=== PATIENT | male | born 1945 | race Caucasian/White ===

== ENCOUNTER 2018-08-15 05:37 | Inpatient (IN) | payer MEDICARE ==
--- NOTE | 2018-08-12 10:10 | HP ---
Amended report to enter cosigning physician. HISTORY AND PHYSICAL: DATE OF ADMISSION/SURGERY: 08/15/18 DATE OF OFFICE VISIT: 08/09/18 SURGEON: Telma Rascon MD* (dictated by ROSENDO Avery). PROCEDURE: Right total knee arthroplasty. CHIEF COMPLAINT: Right knee pain. HISTORY OF PRESENT ILLNESS: Mr. Mai is a 73-year-old gentleman with end- stage osteoarthritis of the right knee. He has failed conservative treatment and elected to proceed with a right total knee arthroplasty. PAST MEDICAL HISTORY: High cholesterol and hypertension. PAST SURGICAL HISTORY: Right knee arthroscopy, appendectomy and right rotator cuff repair. CURRENT MEDICATIONS: 1. Amlodipine 10 mg a day. 2. Losartan 100 mg a day. 3. Simvastatin 20 mg a day. ALLERGIES: No known drug allergies. FAMILY HISTORY: Diabetes, coronary artery disease and cancer. SOCIAL HISTORY: A 73-year-old gentleman, lives with his . He does not smoke or use drugs. REVIEW OF SYSTEMS: A complete 14-point review of systems was reviewed with the patient. It was all negative and noncontributory. PHYSICAL EXAMINATION GENERAL: He is well developed, well nourished, in no acute distress. VITAL SIGNS: He stands 68 inches tall, weighs 182 pounds. Blood pressure is 116/72, heart rate 68. HEENT: Normocephalic, atraumatic. NECK: Supple. No palpable lymph nodes. PULMONARY: The lungs are clear to auscultation bilaterally. CARDIO: Regular rate and rhythm. Strong S1, S2. ABDOMEN: Soft, nontender, and nondistended. NEUROLOGICAL: He is alert and oriented x3. MUSCULOSKELETAL: Right lower extremity, the skin is intact. There are no open wounds or abrasions. There is a moderate effusion of the right knee joint. Range of motion is 15 to 120 degrees of flexion. There is a varus alignment. He has 2+ dorsalis pedis pulse. He is able to dorsiflex and plantarflex and has intact sensation. ASSESSMENT AND PLAN: Mr. Mai is a 73-year-old gentleman with end-stage osteoarthritis of the right knee. He has failed conservative treatment and elected to proceed with a right total knee arthroplasty. The surgery is scheduled for 08/15/[address] Rascon discussed the risks and benefits of the surgery at today's visit and all of his questions were answered. He will follow up with Dr. Rascon 2 weeks after the surgery. ROSENDO AVERY [id number]/CPS #: [id number] [facility]OSPITALNick
[~2018-08-15 05:37] MED LIST: Buffered Lidocaine 1% SYRIN* 1 ML/SYRINGE INTRADERM ONE; Tranexamic Acid 1,000 MG in NS 0.9% 50 ML* (outpatient use) IV SCH
--- OUTSIDE RECORDS SUMMARY | 2018-08-15 05:39 | XMS REPORT | Continuity of Care Document ---
:1945 External Reference #:[id number] Author Name Annemarie Lovell Care Team Providers Name Role Phone Colby Moreno MD Primary Care Physician Unavailable Payers Date Identification Numbers Payment Provider Subscriber Policy Number: [id number] [employer] Medicare Rangel Mai PayID: [id number] [address] [place] [address] Expires: 2013 Policy Number: [id number] [employer] Rangel Mai Group Number: [id number] [address] PayID: [id number] [place] [address] Expires: 2018 Policy Number: [id number] [employer] Rangel Mai Group Number: [id number] [address] PayID: [id number] [place] [address] Advance Directives Description No Information Available Problems Description No Information Family History Date Family Member(s) Observation Comments General Heart Disease General Breast Cancer General Benign Prostatic Hypertrophy General Diabetes Social History Type Date Description Comments Sex Unknown Lives With Occupation Retired ETOH Use Occasionally consumes alcohol Recreational Drug Use Denies Drug Use Tobacco Use Start: Unknown Patient has never smoked Smoking Status Reviewed: 08/09/18 Patient has never smoked Exercise Type/Frequency Exercises regularly Allergies, Adverse Reactions, Alerts Description No Known Drug Allergies Medications Active Medications SIG Qnty Indications Ordering Provider Date Simvastatin 1 by mouth every 90tabs Unknown 20mg day Tablets Amlodipine Besylate Take 1 Tablet By Unknown Mouth Every Day 10mg Tablets Losartan Potassium Take 1 Tablet By Unknown Mouth Every Day 100mg Tablets History Medications Voltaren apply 2g to 100g M76.62 Marcos Peraza, 12/18/2014 - 1% Gel affected area M.D. 06/16/2018 four times a day Ambien CR take one tablet 15tabs Josiah Lr, 09/05/2012 - 6.25mg at bedtime prn M.D. 06/16/2018 Tablets ER sleep Percocet take 1-2 tabs po 60tabs Josiah Lr, 07/19/2012 - 5-325mg q4-6 hours prn M.D. 03/06/2014 Tablets pain Ibuprofen 1 by mouth three 90tabs Unknown - 600mg times a day as 06/16/2018 Tablets needed Lisinopril 1 by mouth every 90tabs Unknown - 10mg day 06/16/2018 Tablets Medications Administered in Office Medication SIG Qnty Indications Ordering Provider Date Depomedrol 40MG Frederick Ashley M.D. 02/01/2011 Injection Immunizations Description No Information Available Vital Signs Date Vital Result Comment 08/09/2018 9:37am Height 68 inches 5'8" Weight 183.00 lb Heart Rate 68 /min BP Systolic 116 mmHg BP Diastolic 72 mmHg Respiratory Rate 16 /min Body Temperature 97.2 F Pain Level 97.2 BMI (Body Mass Index) 27.8 kg/m2 06/17/2018 9:45am Height 68 inches 5'8" Weight 188.00 lb Heart Rate 84 /min BP Systolic 124 mmHg BP Diastolic 72 mmHg BMI (Body Mass Index) 28.6 kg/m2 03/05/2015 10:38am Height 68 inches 5'8" Weight 190.00 lb Pain Level 2 BMI (Body Mass Index) 28.9 kg/m2 01/29/2015 10:07am Height 68 inches 5'8" Weight 190.00 lb Pain Level 2 2-4 BMI (Body Mass Index) 28.9 kg/m2 12/18/2014 10:49am Height 68 inches 5'8" Weight 190.00 lb Pain Level 2 BMI (Body Mass Index) 28.9 kg/m2 03/06/2014 9:57am Height 68 inches 5'8" Weight 188.00 lb Heart Rate 76 /min BP Systolic Sitting 140 mmHg BP Diastolic Sitting 0 mmHg Pain Level 2 back BMI (Body Mass Index) 28.6 kg/m2 Results Test Date Facility Test Result H/L Range Note Surgical Pathology 08/07/2012 [facility] S RUN DATE: irisnote <SEE NOTE> [place] [address] [phone] 1 RUN DATE: 08/08/12 [facility] LAB LIVE PAGE 1 RUN TIME: [address] [facility], [place], [place] [address] Specimen Inquiry Name: RANGEL MAI : [address]: Josiah Lr MD Acct: [id number] Unit: [id number] AGE: 67 Location: [place] Re08/07/12 SEX: M [place] [facility] [place]C: [id number] BRANDIN: 08/07/12- [facility] DR: Josiah Lr MD REQ: [id number] RECD: 08/07/12 STATUS: SOUT _ ORDERED: LEVEL III FINAL DIAGNOSIS Shoulder, right, shavings: Fragments of hyperplastic synovium, articular cartilage with degenerative features, and bone fragments. PRE-OPERATIVE DIAGNOSIS Right shoulder cuff tear GROSS DESCRIPTION The specimen is received in formalin labeled Rangel Mai, Shavings Right Shoulder, and consists of a 0.7 x 0.3 x 0.2 cm. aggregate of yellow and white tissue fragments. Rug Clipper sections, one cassette. Signed (signature on file) Thom Gonsales MD 1529 END OF REPORT * ML=Testing performed at Main Lab DEPARTMENT OF PATHOLOGY, [address] [place] [address] Thom Gonsales M.D. Director [facility] Permit #[id number] Procedures Date Code Description Status 08/07/2012 16341 Arthroscopy Shoulder,W/Rotator Cuff Repair Completed 08/07/2012 94836 Arthroscopy Shoulder,W/Rotator Cuff Repair Completed 08/07/2012 55297 Arthroscopy,Shoulder Decompression Of Subacromial Space Completed W/Acromio 08/07/2012 25501 Arthroscopy,Shoulder Decompression Of Subacromial Space Completed W/Acromio 05/31/2012 89072 Rad Shoulder Comp, Min. 2 Views Completed 02/01/2011 66018 Rad Exam; Fingers Completed 02/01/2011 87944 Inject Tendon Sheath Or Ligament Aponeurosis Eg Plantar Completed Fascia Encounters Type Date Location Provider Dx Diagnosis Office Visit 06/17/2018 Orthopedic Telma Rascon, M25.561 Pain in right 9:00a [facility] knee M25.461 Effusion, right knee M17.11 Unilateral primary osteoarthritis, right knee M21.161 Varus deformity, not elsewhere classified, right knee Office Visit 03/05/2015 10:30a Orthopedic Marcos Montenegro76.62 [facility] M.D. tendinitis, left leg Office Visit 01/29/2015 10:00a Leah Montenegro76.62 [facility] M.D. tendinitis, left leg Office Visit 12/18/2014 10:20a Orthopedic Marcos 726.71 Bursitis Or [facility] Per[facility] M.D. Tendinitis Achilles Office Visit 03/06/2014 9:40a Neurosurgery Mike Bell 721.3 Spondylosis [facility] Kody Guerrero M.D. 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 (Capsule) Office Visit 12/03/2012 10:15a Orthopedic Josiah Lr 840.4 Sprains & Strains Services Of M.D. Rotator Cuff [facility]. (Capsule) Office Visit 05/31/2012 2:15p Orthopedic Frederick Ashley 840.4 Sprains & Strains Services Of M.D. Rotator Cuff [facility] (Capsule) Office Visit 02/15/2011 2:45p Orthopedic Frederick Ashley 722.10 Intervertebral Disc [facility] M.D. Displacement Lumbar [facility]. W/O Myelopathy Office Visit 02/01/2011 8:00a Orthopedic Frederick Ashley 727.05 Tenosynovitis Hand & Services Of M.D. Wrist Other C.M.A. 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 at [facility]08/15/2018 7:45 am - Venkata Long PA-C at [facility]08/15/2018 7:45 am - ROSENDO Luna at [facility]08/15/2018 7:45 am - Telma Rascon M.D. at [facility]08/09/2018 - Telma Rascon M.D.M25.561 Pain in right kneeFollow up:Follow up: 2 weeks after xfwrhvhB25.461 Effusion, right kneeNew Therapy:Physical JtioqkvM31.11 Unilateral primary osteoarthritis, right kneeM21.161 Varus deformity, not elsewhere classified, right knee
[2018-08-15] MEDS ORDERED: celeCOXIB CAP* 100 MG ONE (05:59)
[2018-08-15] MEDS ORDERED: Acetaminophen TAB* 325 MG ONE (05:59)
[2018-08-15] MEDS ORDERED: Gabapentin CAP(*) 300 MG ONE (05:59)
[2018-08-15] MEDS ORDERED: Famotidine IV* 10 MG/ML 2 ML (20 mg) ONE (06:00)
[2018-08-15] MEDS ORDERED: Lactated Ringers 1000 ML Bag* 1,000 ML IV SCH (06:00)
[2018-08-15] MEDS ORDERED: celeCOXIB CAP* 200 MG PO ONE (06:00)
[2018-08-15] MEDS ORDERED: Gabapentin CAP(*) 300 MG PO ONE (06:00)
[2018-08-15] MEDS ORDERED: Acetaminophen TAB* 325 MG PO ONE (06:00)
[2018-08-15] MEDS ORDERED: Famotidine IV* 10 MG/ML 2 ML (20 mg) IV ONE (06:00)
[2018-08-15] MEDS ORDERED: ceFAZolin 2 GM in NS PREMIX(*) 2 GM/100 ML BAG IVPB ONE (06:00)
[2018-08-15] MEDS ORDERED: Buffered Lidocaine 1% SYRIN* 1 ML/SYRINGE INTRADERM ONE (06:33)
[2018-08-15] MEDS ORDERED: Lidocaine 2% PF * 5 ML VIAL ONE (06:59)
[2018-08-15] MEDS ORDERED: Propofol* 10 MG/ML 20 ML BTL ONE ×2 (06:59→08:08)
[2018-08-15] MEDS ORDERED: ROPIVACAINE 5 MG/ML 30 ML BTL (0.5%) ONE ×2 (06:59→07:02)
[2018-08-15] MEDS ORDERED: fentaNYL* 50 MCG/ML 2 ML VIAL (100 MCG VIAL) ONE (06:59)
[2018-08-15] MEDS ORDERED: Sodium Chloride 0.9%* 20 ML ONE (06:59)
[2018-08-15] MEDS ORDERED: Dexamethasone IV* 4 MG/ML 1 ML (4 MG) ONE (06:59)
[2018-08-15] MEDS ORDERED: Ondansetron INJ* 2 MG/ML VIAL ONE (06:59)
[2018-08-15] MEDS ORDERED: Midazolam* 1 MG/ML 10 ML VIAL (10 MG) ONE (07:00)
[2018-08-15] MEDS ORDERED: KETAMINE HCL* 50 MG/ML 10 ML VIAL ONE (07:00)
[2018-08-15] MEDS ORDERED: Bupivacaine 0.5% SDV PF* 30ML VIAL ONE (07:57)
[2018-08-15] MEDS ORDERED: Phenylephrine 10 MG/ML VIAL* 1 ML VIAL ONE (08:26)
[2018-08-15] MEDS ORDERED: Naloxone* 0.4 MG/ML 1 ML VIAL IV PRN (09:51)
[2018-08-15] MEDS ORDERED: Ondansetron INJ* 2 MG/ML VIAL IV PRN ×2 (09:51→10:23)
[2018-08-15] MEDS ORDERED: fentaNYL* 50 MCG/ML 2 ML VIAL (100 MCG VIAL) IV PRN (09:51)
[2018-08-15] MEDS ORDERED: diPHENhydraMINE IV* 50 MG/ML 1 ml VIAL (BENADRYL) IV PRN (10:23)
[2018-08-15] MEDS ORDERED: Morphine INJ* 2 MG/ML 1 ML SYRINGE (TWO MG - NEW SYRINGE VERSION) IV PRN (10:23)
[2018-08-15] MEDS ORDERED: Magnesium Hydroxide LIQ* 30 ML UDC PO PRN (10:23)
[2018-08-15] MEDS ORDERED: Bisacodyl SUPP* 10 MG SUPP PR PRN (10:23)
[2018-08-15] MEDS ORDERED: Ondansetron TAB* 4 MG PO PRN (10:23)
[2018-08-15] MEDS ORDERED: Polyethylene Glycol 3350* 17 GM PACKET PO PRN (10:23)
[2018-08-15] MEDS ORDERED: oxyCODONE/Acetamin 5/325 MG* TAB PO PRN (10:23)
[2018-08-15] MEDS: Lactated Ringers 1000 ML Bag* 1,000 ML IV SCH ×2 (12:10→22:50)
[2018-08-15] MEDS: oxyCODONE/Acetamin 5/325 MG* TAB PO PRN ×3 (13:05→22:44)
--- NOTE | 2018-08-15 14:32 | PN ---
Progress Note - Progress Note Date of Service: 08/15/18 Note: patient resting in room, pain 4/10; able to dorsi flex/plantar flex, 2+DP pulse and intact sensation, dressing c/d/i
[2018-08-15] MEDS: Acetaminophen TAB* 325 MG PO SCH ×2 (14:40→23:50)
[2018-08-15] MEDS: Cyclobenzaprine TAB* 10 MG PO PRN ×2 (14:45→22:42)
[2018-08-15] MEDS: ceFAZolin 1 GM ADVAN(*) 1 GM in NS 0.9% 50 ML* 50 ML IVPB SCH ×2 (16:43→23:52)
--- NOTE | 2018-08-15 17:56 | OP ---
Operative Report - Blank - Operative Report Date of Operation: 08/15/18 Note: YANG OSCAR 1945 Date of Surgery: 08/15/18 Telma Rascon MD Laser Cutter: Debra ROBBINS did help throughout the procedure with preparation of the knee, wound retraction, manipulation of the knee, and wound closure. Anesthesiologist: Yessi Prater MD Anesthesia Type: Spinal Preoperative Diagnosis: Right severe degenerative osteoarthritis of the knee Postoperative Diagnosis: As above Procedure Performed: Right Total Knee Arthroplasty Tourniquet time: 49 minutes Complications: None Specimen: Bone and cartilage from the right knee joint sent to pathology. Hardware Used: Cemented Gay and Nephew total knee hardware was used - For the femur a size 7 right legion posterior stabilized femoral component, for the tibia a size 6 right tere II tibial baseplate, for the insert a size 9mm 5-6 posterior stabilized articular polyethylene insert, and for the patella a size 35 3-peg all poly patella. Brief History/Indication: YANG OSCAR was known in clinic and had a history of severe right knee pain and swelling. He failed conservative treatment with anti-inflammatories, pain pills, intra-articular injections and physical therapy. He elected to undergo right total knee arthroplasty due to continued pain and decreased quality of life. Radiographs showed severe end stage osteoarthritis of the knee with bone on bone contact. Informed consent was obtained from the patient. He understood the risks of surgery included but were not limited to: bleeding, infection, damage to nearby structures, intraoperative fracture, nerve palsy, failure of the hardware, early loosening, knee stiffness or loss of motion, anesthesia complications, stroke, heart attack , blood clot and . He wished to proceed. Intra-Operative Findings: Intraoperatively the patient was noted to have severe loss of cartilage in all 3 compartments of the knee. His medial femoral condyle had a large loose osteochondral defect encompassing almost the entire weightbearing surface. Description of the Procedure: YANG OSCAR was identified in the preanesthesia unit. His right knee was marked as the correct operative side. Informed consent was signed and placed in the chart. The patient was taken to the operating room and placed under anesthesia without complication. A ramirez catheter was placed. A tourniquet was placed on the right thigh. The right lower extremity was prepped and draped in the usual sterile fashion. Preoperative time-out was made to correctly identify the patient, side and site. Appropriate intraoperative antibiotics were given within one hour of incision. Tourniquet was inflated. A midline incision was made and carried sharply down to the extensor mechanism. A new 10 blade was used to make a standard medial parapatellar arthrotomy. The patella was subluxed laterally. Electrocautery was used to dissect soft tissue off the superomedial tibia to the midsagittal plane. The knee was flexed up. The anterior horn of the lateral meniscus and the ACL were sharply incised. A drill was used to enter the distal femur. The intramedullary distal femoral cutting guide was pinned on the distal femur. The oscillating saw was used to make the distal femoral cut. The external rotation guide was pinned on the distal femur and the distal femur was sized to a size 7. The size 7 multi-cutting jig was pinned on the distal femur. The oscillating saw was used to make the appropriate 4 chamfer cuts. Next the PCL was completely released. The extramedullary tibial cutting guide was pinned on the proximal tibia and the oscillating saw was used to make the proximal tibial cut perpendicular to the mechanical axis of the tibia. The bone was carefully removed. The knee was brought out into full extension. The spacer block was placed and had excellent fit with the knee in full extension. The medial and lateral ligaments were well balanced. The flexion and extension gaps were well balanced. The knee was flexed up. Lamina pilot plant technician was placed both medially and laterally. Any remaining meniscus was removed with electrocautery. Curved osteotome was used to remove any posterior osteophytes. The tibial tray and drop maria guadalupe were placed and confirmed a satisfactory tibial cut. The size 7 right femoral trial was impacted onto the distal femur. This trial had excellent fit and stability. The box for the posterior stabilized implant was prepared using a box cut osteotome and a reamer. Next a tibial tray trial and 9 mm insert trial was placed. The knee was taken through a range of motion and had full extension to 130 degrees of flexion. Patellofemoral tracking was satisfactory. The patella was inverted and sized to a size 35. Three peg holes were drilled through the size 35 drill guide. The trial patella was placed and the knee was taken through a range of motion. There was satisfactory patellofemoral tracking. All trials were removed. The tibia was subluxed anteriorly and sized to a size 6. The proximal tibial was prepared with a size 6 keel punch. All bony cut surfaces were irrigated with sterile saline and dried. Final implants were cemented into place starting with the tibia, followed by the femur, and last the patella. A 9 mm insert trial was placed and the knee was brought into full extension. Tourniquet was turned down and the knee was copiously irrigated with sterile saline. Electrocautery was used to obtain meticulous hemostasis. Once the cement had fully cured, the insert trial was removed. Any excess cement was removed from around the hardware and capsule. Final insert chosen was a 9 mm posterior stabilized Tere II articular insert size 5-6. Stability of the insert was checked and noted to be stable. The extensor mechanism was closed using number 1 vicryls. The rest of the incision was closed in a layered fashion using 0 and 2-0 vicryls. The skin was closed using 3-0 nylon suture. Sterile xeroform, 4x4s and webril were used to cover the incision. Tray wrap and cold pack were used to cover the dressings. The patients anesthesia was reversed without difficulty. He was taken to the PACU in stable condition. Intended weight-bearing will be as tolerated.
--- NOTE | 2018-08-15 18:40 | CONS ---
[facility] MEDICINE CONSULTATION REPORT: DATE OF CONSULT: 08/15/18 PROVIDER: Marisa Pandey NP ATTENDING PHYSICIAN: Dr. Rascon. CONSULTING PHYSICIAN: Dr. Camilo Jennings. REASON FOR CONSULT: Co-management of chronic medical conditions. HISTORY OF PRESENT ILLNESS: Mr. Mai is a 73-year-old male with past medical history significant for hypertension, hyperlipidemia, who presented [place] [facility] [place] elective right total knee arthroplasty with Dr. Rascon. Please see dictated H and P from ROSENDO Avery, for complete details. In brief, the patient had ongoing pain in his right knee, end-stage osteoarthritis and failed conservative treatments and opted for an elective right total knee arthroplasty. In the immediate postoperative period, the patient has complaints of mild right knee pain. He denies any recent illnesses, fever, chills, nausea, vomiting, diarrhea, abdominal pain, shortness of breath, cough, or congestion. Denies any dysphagia, arthralgias, myalgias, rashes, lesions, open sores, gross hematuria, dysuria. Due to his history of hypertension and hyperlipidemia, we were asked to see the patient in consultation. PAST MEDICAL HISTORY: 1. Hypertension. 2. Hyperlipidemia. PAST SURGICAL HISTORY: 1. Meniscus repair in April of 2018. 2. Appendectomy. 3. Rotator cuff repair. HOME MEDICATIONS: Include: 1. Amlodipine 10 mg p.o. daily. 2. Aspirin 81 mg p.o. daily. Aspirin was stopped 7 days prior to surgery. 3. Losartan 100 mg p.o. daily. 4. Simvastatin 20 mg p.o. daily. ALLERGIES: No known drug allergies. FAMILY HISTORY: Father with a history of an [place] and hypertension. No reported history of diabetes. Mother with a history of breast cancer. Father with a history of prostate cancer. Son with renal cancer. SOCIAL HISTORY: Denies any tobacco or illicit drug use. Does report occasional alcohol use. He is . Surrogate decision maker in the event he is unable to make his own decisions is his . He is a full code. REVIEW OF SYSTEMS: A 14-point review of systems was completed. All pertinent positives are mentioned in the HPI. Otherwise are negative. PHYSICAL EXAM: General: At this time, Mr. Mai is a 73-year-old male. He is alert, sitting in a recliner in his room. He does not appear to be in any acute distress. He is well developed, well nourished. Vital Signs: Blood pressure 113/75, heart rate 70, respirations 18, O2 saturation 99%, temperature was 97.4. HEENT: Head is atraumatic, normocephalic. Eyes: EOMs are intact. Sclerae anicteric and not pale. Oral mucosa appeared to be moist. Neck is supple. Lungs are clear to auscultation bilaterally. No wheezes, rales, or rhonchi. Cardiac: S1, S2. Regular rate and rhythm. No murmurs, rubs, or gallops. Abdomen is soft and nontender. Bowel sounds are present x4. Extremities: There is no clubbing or cyanosis. Pedal pulses are +2 bilaterally. He has no calf tenderness. He does report mild pain to his right knee. The dressing is dry and intact to his right knee. Skin: He does have a dressing intact to his right knee. Otherwise, no open lesions. Neurologic: He is awake, alert, and oriented x3. Speech is clear. Thought process is intact. There are no gross focal deficits. Psych: He is alert and oriented x3. Affect was appropriate. DIAGNOSTIC STUDIES/LAB DATA: WBCs from 08/07/18 were 7.93, RBCs 4.01, hemoglobin 12.9, hematocrit was 37.8, platelet count was 183. Sodium was 138, potassium 4.0, chloride 107, carbon dioxide was 22, calcium was 9.3, BUN was 24 , creatinine 1.0, glucose was 126. ASTs were 58, ALTs were 37, alkaline phosphatase was 98. TSH was 1.03. IMPRESSION AND PLAN: Mr. Mai is a 73-year-old male with past medical history significant for hypertension, hyperlipidemia, who presented to [facility] today for an elective right total knee arthroplasty with Dr. Rascon. Hospital Medicine was asked to consult due to his hypertension and hyperlipidemia. Our recommendations are as follows: 1. Status post right total knee arthroplasty. Management per Orthopedics. PT/ OT per Orthopedics. Bowel regimen per Orthopedics. 2. Hypertension. At this time, I would hold his amlodipine and losartan today. We will resume tomorrow withholding parameters for systolic blood pressure less than 120. 3. Hyperlipidemia. Continue his atorvastatin. I would continue his medications as previously prescribed. 4. DVT prophylaxis: Per Orthopedics. 5. Diet: He can have a regular diet. 6. Code status: He is a full code. TIME SPENT: Time spent on this consultation was 45 minutes, greater than half that time was spent at the bedside reviewing events leading thus far to his hospitalization, performing physical exam, and reviewing my plan of care. I have discussed with my attending, Dr. Camilo Jennings; he is in agreement with my plan. MARISA PANDEY, ELECTRICAL MANAGER [id number]/CPS #: [id number] NOEMI
[2018-08-15] MEDS ORDERED: Losartan TAB* 25 MG PO SCH (21:00)
[2018-08-15] MEDS ORDERED: amLODIPine TAB* 5 MG PO SCH (21:00)
[2018-08-15] MEDS: Docusate CAP* 100 MG PO SCH (22:42)
[2018-08-15] MEDS: Atorvastatin* 10 MG TAB PO SCH (22:43)
[2018-08-15] MEDS: Magnesium Hydroxide LIQ* 30 ML UDC PO SCH (22:45)
[2018-08-16] MEDS: oxyCODONE/Acetamin 5/325 MG* TAB PO PRN ×4 (04:11→22:33)
[2018-08-16] MEDS: Acetaminophen TAB* 325 MG PO SCH ×3 (06:22→22:36)
[2018-08-16 06:53] LABS: Hematocrit 33 % (36-46); Hemoglobin 11.4 g/dL (14.0-18.0); Mean Platelet Volume 9.4 fL (7.4-10.4); Platelet Count 154 10^3/uL (150-450)
[2018-08-16 07:05] LABS: BUN/Creatinine Ratio 21.6 (8-20); Calcium 8.8 mg/dL (8.6-10.3); EGFR Non-African American 85.1 (>60); Potassium 4.1 mmol/L (3.5-5.0)
[2018-08-16] MEDS: Docusate CAP* 100 MG PO SCH ×2 (07:47→19:35)
[2018-08-16] MEDS: Magnesium Hydroxide LIQ* 30 ML UDC PO SCH ×2 (07:48→19:36)
[2018-08-16] MEDS: Apixaban* 2.5 MG TAB PO SCH ×2 (07:48→19:32)
[2018-08-16] MEDS: ceFAZolin 1 GM ADVAN(*) 1 GM in NS 0.9% 50 ML* 50 ML IVPB SCH (07:51)
--- NOTE | 2018-08-16 11:27 | PN ---
Progress Note - Progress Note Date of Service: 08/16/18 SOAP: Subjective: []Patient seen OOB in chair. He is doing well. Pain managed. He denies SOB, CP, palpitations or dizziness. Does not feel ready to go home today. Objective: [] Vital Signs Temp 99.3 F 08/16/18 07:19 Pulse 72 08/16/18 07:19 Resp 16 08/16/18 10:41 BP 103/65 08/16/18 07:19 Pulse Ox 96 08/16/18 08:00 Intake & Output 08/15/18 08/16/18 08/16/18 18:59 06:59 18:59 Intake Total 360 500 Output Total 1350 950 125 Balance -990 -450 -125 Intake: Oral 360 500 Output: Urine 125 [place] 1350 950 Other: # Bowel Movements 0 Laboratory Results - last 24 hr 08/16/18 08/16/18 06:23 06:23 Hgb 11.4 L Hct 33 L Plt Count 154 MPV 9.4 Sodium 135 Potassium 4.1 Chloride 105 Carbon Dioxide 24 Anion Gap 6 BUN 19 Creatinine 0.88 Est GFR ( Amer) 103.0 Est GFR (Non-Af Amer) 85.1 BUN/Creatinine Ratio 21.6 H Glucose 137 H Calcium 8.8 Right knee dressing is dry and intact calf non tender and soft + Df right ankle sensation and circulation intact distally Assessment: []s/p Right total knee arthroplasty POD #1 Plan: []PT/OT dressing change tomorrow WBAT RLE Eliquis for DVT prophylaxis Probable discharge home 08/17
[2018-08-16] MEDS: traMADol TAB* 50 MG PO PRN ×2 (12:39→19:38)
[2018-08-16] MEDS: oxyCODONE TAB* 5 MG TAB PO PRN ×2 (15:33→18:31)
[2018-08-16] MEDS: Cyclobenzaprine TAB* 10 MG PO PRN (15:39)
[2018-08-16] MEDS ORDERED: LORazepam TAB(*) 0.5 MG PO ONE (18:25)
[2018-08-16] MEDS ORDERED: LORazepam TAB(*) 0.5 MG ONE (18:27)
[2018-08-16] MEDS: Atorvastatin* 10 MG TAB PO SCH (19:34)
[2018-08-16] MEDS ORDERED: Losartan TAB* 25 MG PO SCH (21:00)
[2018-08-16] MEDS ORDERED: amLODIPine TAB* 5 MG PO SCH (21:00)
[2018-08-17] MEDS: oxyCODONE TAB* 5 MG TAB PO PRN (00:23)
[2018-08-17] MEDS: Cyclobenzaprine TAB* 10 MG PO PRN ×2 (00:27→08:24)
[2018-08-17] MEDS: oxyCODONE/Acetamin 5/325 MG* TAB PO PRN ×3 (03:57→12:30)
[2018-08-17] MEDS: Acetaminophen TAB* 325 MG PO SCH (05:29)
[2018-08-17 06:38] LABS: Hematocrit 33 % (36-46); Hemoglobin 11.5 g/dL (14.0-18.0); Mean Platelet Volume 9.6 fL (7.4-10.4); Platelet Count 142 10^3/uL (150-450)
--- NOTE | 2018-08-17 08:22 | PN ---
Progress Note - Progress Note Date of Service: 08/17/18 SOAP: Subjective: [Pt reports he is doing better today than yesterday pain-hussein. Pain managed with Percocet. Has not had a bowel movement yet. Denies CP, SOB, dizziness. Has done stairs with PT. Would like to have PT today and then go home if all goes well.] Objective: [A and O x 3 , NAD. Seated in bed eating breakfast. R knee dressing changed. Surgical incision benign. Calf soft, NT Distal gross motor and NV function intact. Vital Signs: Temp Pulse Resp BP Pulse Ox 97.5 F 75 16 105/73 94 08/17/18 07:40 08/17/18 07:40 08/17/18 07:40 08/17/18 07:40 08/17/18 07:40 Laboratory Results - last 24 hr 08/17/18 06:19 Hgb 11.5 L Hct 33 L Plt Count 142 L MPV 9.6 ] Assessment: [s/p R TKA POD #2] Plan: [PT session today Plan for D/C home Percocet for pain management Eliquis for DVT proph F/U with Dr. Rascon in 2 weeks]
[2018-08-17] MEDS: Magnesium Hydroxide LIQ* 30 ML UDC PO SCH (08:24)
[2018-08-17] MEDS: Docusate CAP* 100 MG PO SCH (08:24)
[2018-08-17] MEDS: Apixaban* 2.5 MG TAB PO SCH (08:25)
[2018-08-17 11:54] VITALS: BP 126/66
--- NOTE | 2018-08-17 20:50 | PN ---
Subjective Date of Service: 08/17/18 Interval History: afebrile no acute events overnight. sleepy in AM. anxious about right mix of pain control. had been running up against tylenol limit yesterday. 5/10 pain. denies chest pain, SOB, abdominal pain. . Objective Oxygen Devices in Use Now: None Appearance: NAD, sitting in chair. Eyes: No Scleral Icterus Ears/Nose/Mouth/Throat: NL Teeth, Lips, Gums Respiratory: Symmetrical Chest Expansion and Respiratory Effort, Clear to Auscultation Cardiovascular: NL Sounds; No Murmurs; No JVD Lymphatic: No Cervical Adenopathy, No Axillary Adenopathy Extremities: No Edema, - - right knee in brace Skin: No Rash or Ulcers Neurological: Alert and Oriented x 3 Nutrition: Taking PO's Result Diagrams: 08/17/18 06:19 08/16/18 06:23 Additional Lab and Data: Laboratory Results - last 24 hr 08/17/18 06:19 Hgb 11.5 L Hct 33 L Plt Count 142 L MPV 9.6 Assess/Plan/Problems-Billing Assessment: 73 yo male PMH HTN HLD, end stage right knee OA now s/p right total knee. course complicated by knee pain. #s/p RTK continue tylenol, flexeril, percosets stable for discharge eliquis. #HTN continue home meds #HLD continue statin.
--- NOTE | 2018-08-19 18:34 | DS ---
DISCHARGE SUMMARY: DATE OF ADMISSION: 08/15/18 DATE OF DISCHARGE: 08/17/18 PROVIDER: Telma Rascon MD ADMITTING PHYSICIAN: Dr. Rascon.* (DICTATED BY ROSENDO SEGURA) ADMITTING DIAGNOSES: 1. Right knee arthritis. 2. Hypertension. 3. Hypercholesterolemia. DISCHARGE DIAGNOSES: 1. Status post right total knee arthroplasty. 2. Hypertension. 3. Hypercholesterolemia. PROCEDURE: Right total knee arthroplasty. CONSULTANTS: Physical Therapy and Occupational Therapy. BRIEF HISTORY: Mr. Mai is a 73-year-old male with severe degenerative osteoarthritis of his right knee. He failed conservative treatment measures and elected to undergo a right total knee arthroplasty on 08/15/[address] Rascon. HOSPITAL COURSE: Mr. Mai was admitted to [facility] on . He underwent an uncomplicated right total knee arthroplasty. Postoperatively, he recovered on the short-stay surgical unit. His [place] catheter was removed on postoperative day #1, and he was unable to urinate on his own. He advanced to a regular diet without difficulty. His pain was well controlled with Percocet and Flexeril. He took Eliquis 2.5 mg b.i.d. for DVT prophylaxis and he was restarted on his home medications. His vital signs and labs remained stable. He was able to bear weight as tolerated on the right lower extremity and advanced appropriately with physical therapy and occupational therapy. By postoperative day #2, he was orthopedically and medically stable to be discharged to home with services. He was not able to have a bowel movement prior to discharge but was prescribed medications to help him with that. PHYSICAL EXAMINATION: General: On examination, the patient is noted to be calm and cooperative, in no acute distress. He is alert and oriented x3. Vital Signs: On the day of discharge, temperature 97.9 degrees Fahrenheit, pulse rate 89, respiratory rate 18, O2 sat 95% on room air, blood pressure 122/ 74. Extremities: Examination of his right lower extremity demonstrates a dressing overlying the right knee which is clean, dry, and intact. His calf is soft and nontender. Distally, he has +2 palpable DP pulse and gross motor function intact. LABORATORY DATA: Laboratory data on day of discharge hemoglobin 11.5, hematocrit 33. Postoperative radiographs of the right knee demonstrate a right total knee arthroplasty with satisfactory prosthesis placement and no acute abnormalities. DISCHARGE MEDICATIONS: 1. Amlodipine 10 mg a day. 2. Losartan 10 mg a day. 3. Simvastatin 20 mg a day. 4. Eliquis 2.5 mg b.i.d. 5. Percocet 5/325 one to two tabs p.o. q.4 to 6 hours p.r.n. pain. 6. Colace. 7. Milk of Magnesia. 8. Dulcolax suppository. 9. Flexeril 5 mg t.i.d., p.r.n. spasm. CONDITION ON DISCHARGE: Stable. DISCHARGE INSTRUCTIONS: Mr. Mai is a 73-year-old male, postoperative day # 2 status post right total knee arthroplasty, which was uncomplicated. He is orthopedically and medically stable to be discharged home with services. He has stable vital signs and labs. He has been restarted on home medications. He will use Eliquis 2.5 mg b.i.d. for DVT prophylaxis and Percocet 5/325 for pain management, along with Flexeril 5 mg up to t.i.d. He will remain weightbearing as tolerated on the right lower extremity and have home physical therapy twice a day. He will follow up in the office with Dr. Rascon in 10 to 14 days for incision check and suture removal. He was instructed to call Dr. Rascon or go immediately to the ER should he develop any new fevers, chills, incision pain, redness or drainage. He was instructed to go immediately to the ER should be develop chest pain or shortness of breath. ROSENDO SEGURA [id number]/[facility] #: [id number] [facility]USNick
== END 2018-08-17 12:50 | disposition home health service (06) | DRG 470 ==
LOC: AA 05:37 → SSU 10:23
PROVIDERS: ADMIT Orthopaedic Surgery Adult Reconstructive Orthopaedic Surgery; ATTEND Orthopaedic Surgery Adult Reconstructive Orthopaedic Surgery
PROC: 0SRC0J9 Replacement of Right Knee Joint with Synthetic Substitute, Cemented, Open Approach (ICD-10-PCS; principal; 2018-08-15 07:30)
DX: M17.11 Unilateral primary osteoarthritis, right knee (principal); I10 Essential (primary) hypertension; E78.00 Pure hypercholesterolemia, unspecified; M25.461 Effusion, right knee; N40.0 Benign prostatic hyperplasia without lower urinary tract symptoms; E78.5 Hyperlipidemia, unspecified; M54.32 Sciatica, left side; M21.161 Varus deformity, not elsewhere classified, right knee; M25.761 Osteophyte, right knee; Z86.010 Personal history of colon polyps; Z80.42 Family history of malignant neoplasm of prostate; Z80.0 Family history of malignant neoplasm of digestive organs; Z79.01 Long term (current) use of anticoagulants; Z90.89 Acquired absence of other organs; Z83.3 Family history of diabetes mellitus; Z82.49 Family history of ischemic heart disease and other diseases of the circulatory system; Z72.89 Other problems related to lifestyle
CPT/HCPCS: 36415; 80048; 85014; 85018; 85049; 88305; 88311; A9270-GY; C1776; G8978-GP-CL; G8979-GP-CI; J0690; J1100; J2250; J2270; J2405; J2704; J2795; J3010; J3490